=== PATIENT | male | born 1985 | race African-American/Black ===

== ENCOUNTER 2023-01-22 07:22 | Emergency (ER) | payer BC ==
[~2023-01-22] VITALS: Ht 185.4 cm; Wt 105.0 kg
[2023-01-22 07:27] VITALS: TEMP 99.1; O2SAT 99
[2023-01-22 08:45] VITALS: BP 142/85; PULSE 103; RESP 20
[2023-01-22] MEDS ORDERED: HYDROCODONE/ACETAMINOPHEN 5/325MG TABLET PO ONE (08:45)
[2023-01-22] MEDS ORDERED: HYDR-4001 MT (09:03)
== END 2023-01-22 09:11 | disposition home or self-care (01) ==
LOC: ER 07:22
DX: K08.89 Other specified disorders of teeth and supporting structures (principal); Z98.890 Other specified postprocedural states; E11.9 Type 2 diabetes mellitus without complications
CPT/HCPCS: 99283; Z7610